=== PATIENT | female | born 1950 | race Hispanic/Latino ===

== ENCOUNTER 2018-03-20 12:38 | Emergency (ER) | payer MEDICARE ==
[2018-03-20 12:47] VITALS: RESP 18; TEMP 98.1; O2SAT 98; BMI 27.4
--- NOTE | 2018-03-20 13:29 | ED PDOC ---
Arrival/HPI - General Chief Complaint: Cough, Cold, Congestion Time Seen by Provider: 03/20/18 13:04 Historian: Patient - History of Present Illness Narrative History of Present Illness (Text): 03/20/18 13:22 67 year old female, with no significant past medical history, who presents to the emergency department complaining of a fever, cough, and nasal congestion x 6 days. Patient notes she went to her doctor, who told the patient to take Mucinex and prescribed Zepac, and tessalon perles. Patient notes she only took Mucinex. Patient notes she took Mucinex this morning but when she got up to make food, felt weak and hot. Patient denies any chills, chest pain, shortness of breath, abdominal pain, nausea, vomiting, diarrhea, back pain, neck pain, headache, dizziness, or any other complaint. PMD: Dr. Ary Pisano Time/Duration: < week (6 days) Symptom Onset: Gradual Symptom Course: Unchanged Activities at Onset: Light Context: Home Past Medical History - Provider Review Nursing Documentation Reviewed: Yes - Infectious Disease Hx of Infectious Diseases: None - Tetanus Immunization Tetanus Immunization: Unknown - Past Medical History Past Medical History: No Previous - Psychiatric Hx Substance Use: No - Surgical History Hx Appendectomy: Yes - Anesthesia Hx Anesthesia: Yes Hx Anesthesia Reactions: No Hx Malignant Hyperthermia: No - Suicidal Assessment Feels Threatened In Home Enviroment: No Family/Social History - Physician Review Nursing Documentation Reviewed: Yes Family/Social History: Unknown Family HX Smoking Status: Never Smoked Hx Alcohol Use: No Hx Substance Use: No Hx Substance Use Treatment: No Allergies/Home Meds Allergies/Adverse Reactions: Allergies aspirin Allergy (Verified 03/20/18 12:40) NAUSEA Penicillins Allergy (Verified 03/20/18 12:42) CONGESTION Home Medications: Home Meds Medication Instructions Recorded Confirmed No Known Home Med [No Known Home 04/13/15 03/20/18 Med] Review of Systems - Physician Review All systems were reviewed & negative as marked: Yes - Review of Systems Constitutional: Fatigue, Fevers Eyes: Normal ENT: Sinus Congestion Respiratory: Cough. absent: SOB Cardiovascular: Normal. absent: Chest Pain Gastrointestinal: Normal. absent: Abdominal Pain, Diarrhea, Nausea, Vomiting Genitourinary Female: Normal. absent: Dysuria, Frequency Musculoskeletal: Normal. absent: Back Pain, Neck Pain Skin: Normal. absent: Rash Neurological: Normal. absent: Headache, Dizziness Endocrine: Normal Hemo/Lymphatic: Normal Psychiatric: Normal Physical Exam Vital Signs Reviewed: Yes Vital Signs Temp Pulse Resp BP Pulse Ox 03/20/18 15:17 98.1 F 90 18 143/82 98 03/20/18 15:15 98 03/20/18 14:45 90 18 143/82 98 03/20/18 12:46 98.1 F 95 H 18 159/89 H 98 Temperature: Afebrile Blood Pressure: Hypertensive Pulse: Regular Respiratory Rate: Normal Appearance: Positive for: Well-Appearing, Non-Toxic, Comfortable Pain Distress: None Mental Status: Positive for: Alert and Oriented X 3 - Systems Exam Head: Present: Atraumatic, Normocephalic Pupils: Present: PERRL Extroacular Muscles: Present: EOMI Conjunctiva: Present: Normal Mouth: Present: Moist Mucous Membranes Nose (Internal): Present: Other (Nasal congestion) Neck: Present: Normal Range of Motion. No: Meningeal Signs, MIDLINE TENDERNESS , Paraspinal Tenderness Respiratory/Chest: Present: Rhonchi (bilateral lower lung rhonchi). No: Respiratory Distress, Accessory Muscle Use Cardiovascular: Present: Regular Rate and Rhythm, Normal S1, S2. No: Murmurs Abdomen: No: Tenderness, Distention, Peritoneal Signs Back: Present: Normal Inspection. No: CVA Tenderness, Midline Tenderness, Paraspinal Tenderness Upper Extremity: Present: Normal Inspection. No: Cyanosis, Edema Lower Extremity: Present: Normal Inspection. No: Edema Neurological: Present: GCS=15, CN II-XII Intact, Speech Normal Skin: Present: Warm, Dry, Normal Color. No: Rashes Psychiatric: Present: Alert, Oriented x 3, Normal Insight, Normal Concentration Medical Decision Making ED Course and Treatment: 03/20/18 13:32 Impression: 67 year old female presents to the emergency department complaining of fever, cough, and nasal congestion. Differential Diagnosis included but are not limited to: Viral vs. Pneumonia Plan: -- Reassess and disposition Progress Notes: CXR normal, no infiltrates. Labs reviewed. WBC 11.5. Influenza negative. Patient states she has a Z-pack given to her by her doctor which she is going to start taking. I told her since that's what her physicians recommended I agree to start treatment. She will make sure to keep well hydrated. She was advised to return to the ED if symptoms worsen or any other concern. - Lab Interpretations Microbiology Results: Microbiology Results 03/20/18 18:11 Blood-Venous Blood Culture - Preliminary NO GROWTH AFTER 48 HOURS 03/20/18 13:45 Blood-Venous Blood Culture - Preliminary NO GROWTH AFTER 48 HOURS Lab Results: 03/20/18 13:45 03/20/18 13:45 Lab Results 03/20/18 14:35: Influenza Typ A,B (EIA) Negative for flu a/b 03/20/18 13:45: WBC 11.5 H, RBC 4.70, Hgb 13.6, Hct 38.7, MCV 82.3, MCH 28.9, MCHC 35.1, RDW 12.1, Plt Count 155, MPV 9.8, Gran % 82.8 H, Lymph % (Auto) 11.1 L, [place] % (Auto) 5.5, Eos % (Auto) 0.3 L, Baso % (Auto) 0.3, Gran # 9.54 H, Lymph # (Auto) 1.3, [place] # (Auto) 0.6, Eos # (Auto) 0.0, Baso # (Auto) 0.03 03/20/18 13:45: Sodium 143, Potassium 3.7, Chloride 102, Carbon Dioxide 29, Anion Gap 16, BUN 12, Creatinine 0.6 L, Est GFR ( Amer) > 60, Est GFR ( Non-Af Amer) > 60, Random Glucose 109, Calcium 8.8, Magnesium 1.9, Total Bilirubin 0.3, AST 34, ALT 43, Alkaline Phosphatase 106, Total Protein 8.2, Albumin 4.5, Globulin 3.6, Albumin/Globulin Ratio 1.2 - RAD Interpretation Radiology Orders: 03/20/18 13:36 CHEST TWO VIEWS (PA/LAT) [RAD] Stat - Medication Orders Current Medication Orders: Discontinued Medications Guaifenesin/Dextromethorphan (Robitussin Dm) 10 ml PO STAT STA Stop: 03/20/18 13:38 Last Admin: 03/20/18 13:46 Dose: - Scribe Statement The provider has reviewed the documentation as recorded by the Scribe Caroline Mccullough All medical record entries made by the Scribe were at my direction and personally dictated by me. I have reviewed the chart and agree that the record accurately reflects my personal performance of the history, physical exam, medical decision making, and the department course for this patient. I have also personally directed, reviewed, and agree with the discharge instructions and disposition. Disposition/Present on Arrival - Present on Arrival Any Indicators Present on Arrival: No History of DVT/PE: No History of Uncontrolled Diabetes: No Urinary Catheter: No History of Decub. Ulcer: No History Surgical Site Infection Following: None - Disposition Have Diagnosis and Disposition been Completed?: Yes Diagnosis: Viral syndrome Disposition: HOME/ ROUTINE Disposition Time: 15:17 Patient Plan: Discharge Condition: IMPROVED Additional Instructions: LUNA PENNY, thank you for letting us take care of you today. Your provider was Otilio Conn DO and you were treated for Viral syndrome. The emergency medical care you received today was directed at your acute symptoms. If you were prescribed any medication, please fill it and take as directed. It may take several days for your symptoms to resolve. Return to the Emergency Department if your symptoms worsen, do not improve, or if you have any other problems. Please contact your doctor or call one of the physicians/clinics you have been referred to that are listed on the Patient Visit Information form that is included in your discharge packet. Bring any paperwork you were given at discharge with you along with any medications you are taking to your follow up visit. Our treatment cannot replace ongoing medical care by a primary care provider outside of the emergency department. Thank you for allowing the [facility] team to be part of your care today. If you had an X-Ray or CT scan: A Radiologist will review the ED reading if any change in treatment is needed we will contact you. If you had a blood, urine, or wound culture: It will take several days for the results, if any change in treatment is needed we will contact you. If you had an STI test: It will take 48 hours for the results. Please call after 1 week if you have not heard back. Referrals: Ary Pisano MD [Family Provider] - Follow up with primary Forms: [employer] (Pashto), WORK NOTE
[2018-03-20] MEDS ORDERED: guaiFENesin DM 200 mg-20 mg/10 ml UD PO STA (13:37)
[2018-03-20 14:08] LABS: BASO # 0.03 K/mm3 (0.0-2.0); BASO % 0.3 % (0.0-3.0); EOS % 0.3 % (1.5-5.0); GRAN # 9.54 (1.4-6.5); GRAN % 82.8 % (50.0-68.0); HEMOGLOBIN 13.6 g/dL (12.0-16.0); LYMPH # 1.3 (1.2-3.4); LYMPH % 11.1 % (22.0-35.0); MEAN CELL VOLUME 82.3 fl (80.0-105.0); MEAN CORPUSCULAR HEMOGLOBIN 28.9 pg (25.0-35.0); MEAN CORPUSCULAR HGB CONC 35.1 g/dl (31.0-37.0); MEAN PLATELET VOLUME 9.8 fl (7.0-11.0); MONO # 0.6 (0.1-0.6); MONO % 5.5 % (1.0-6.0); RBC 4.7 10^6/uL (3.5-6.1); RED CELL DISTRIBUTION WIDTH 12.1 % (11.5-14.5); WHITE BLOOD COUNT 11.5 10^3/ul (4.5-11.0)
[2018-03-20 14:15] LABS: ALB/GLOB RATIO 1.2 (1.1-1.8); ALBUMIN 4.5 g/dL (3.0-4.8); ALT/SGPT 43 U/L (7-56); AST/SGOT 34 U/L (14-36); BLOOD UREA NITROGEN 12 mg/dL (7-21); CALCIUM 8.8 mg/dL (8.4-10.5); GFR AFRICAN-AMERICAN > 60; GFR NON-AFRICAN AMERICAN > 60
--- NOTE | 2018-03-20 14:45 | RAD ---
HISTORY: cough r/o pna COMPARISON: No prior. TECHNIQUE: Chest PA and lateral FINDINGS: LUNGS: No active pulmonary disease. PLEURA: No significant pleural effusion identified. No pneumothorax apparent. CARDIOVASCULAR: Normal. OSSEOUS STRUCTURES: No significant abnormalities. VISUALIZED UPPER ABDOMEN: Normal. OTHER FINDINGS: None. IMPRESSION: No active disease.
[2018-03-20 15:15] VITALS: BP 143/82; PULSE 90
== END 2018-03-20 15:15 | disposition home or self-care (01) ==
LOC: ED 12:38
DX: B34.9 Viral infection, unspecified (principal)